=== PATIENT | female | born 1965 | race Caucasian/White ===

== ENCOUNTER 2016-11-19 20:51 | Inpatient (IN) | payer BC ==
[~2016-11-19] VITALS: Ht 165.1 cm; Wt 85.0 kg
[~2016-11-19 20:51] MED LIST: MOTRIN600 MG PO; TYLENOL WITH C1 EACH PO
[2016-11-19 21:20] LABS: HEMATOCRIT 39.9 % (36.0-46.0); MCHC 32.8 G/DL (30.0-36.0); MCV 88.5 FL (83-99); MEAN PLAT.VOLUME 9.9 uM^3 (9.5-12.4); PLATELET COUNT 300 K/uL (156-360); RBC DIS.WIDTH-CV 13.1 % (11.8-14.6); RBC DIS.WIDTH-SD 42.3 % (39-53); RED BLOOD COUNT 4.51 M/uL (3.80-5.20); WHITE BLOOD COUNT 11.3 K/uL (4.1-10.2)
[2016-11-19 21:37] LABS: CHLORIDE 106 mEq/L (99-109); POTASSIUM 4.1 mEq/L (3.7-5.4); SODIUM 141 mEq/L (136-147)
[2016-11-19 21:38] LABS: GLUCOSE 103 mg/dL (70-99)
[2016-11-19 21:40] LABS: ANION GAP 11 MEQ/L (2-14)
[2016-11-19 21:42] LABS: GFR ESTIMATE (CALCULATED) > 59 mL/min/
[2016-11-19 21:43] LABS: UREA NITROGEN (BUN) 16 mg/dL (9-23)
[2016-11-19 21:49] LABS: TROP-I INTERPRETATION NEGATIVE; TROPONIN-I < 0.01 ng/mL (0.0-0.30)
[2016-11-19 23:24] LABS: TOTAL BILIRUBIN 0.6 mg/dL (0.0-1.0)
[2016-11-19 23:25] LABS: ALKALINE PHOSPHATASE 89 IU/L (3-129)
[2016-11-19 23:28] LABS: DIRECT BILIRUBIN 0.3 mg/dL (0.0-0.3)
[2016-11-19 23:29] LABS: LIPASE 75 U/L (1.0-51.0)
[2016-11-20] MEDS ORDERED: ADVIL PM1 TABLET PO (00:12)
[2016-11-20 02:29] VITALS: BP 111/58
[2016-11-20 04:11] VITALS: BP 118/62
[2016-11-20 07:50] VITALS: BP 99/54
[2016-11-20 08:29] LABS: HEMATOCRIT 34.5 % (36.0-46.0); MCH 29.4 PG (29.0-34.0); MCHC 32.8 G/DL (30.0-36.0); MCV 89.6 FL (83-99); MEAN PLAT.VOLUME 10.5 uM^3 (9.5-12.4); PLATELET COUNT 225 K/uL (156-360); RBC DIS.WIDTH-CV 13.1 % (11.8-14.6); RBC DIS.WIDTH-SD 42.8 % (39-53); RED BLOOD COUNT 3.85 M/uL (3.80-5.20)
[2016-11-20 08:50] LABS: WHITE BLOOD COUNT 4.4 K/uL (4.1-10.2)
[2016-11-20 09:11] LABS: ALKALINE PHOSPHATASE 149 IU/L (3-129); ANION GAP 7 MEQ/L (2-14); CHLORIDE 108 MEQ/L (99-109); GFR ESTIMATE (CALCULATED) > 59 mL/min/; GLUCOSE 86 mg/dL (70-99); LIPASE 37 U/L (1.0-51.0); POTASSIUM 3.9 MEQ/L (3.7-5.4); SAMPLE HEMOLYSIS CHECK 0; SAMPLE ICTERIC CHECK 0; SAMPLE LIPEMIA CHECK 0; SODIUM 143 MEQ/L (136-147); TOTAL BILIRUBIN 1.5 MG/DL (0.0-1.0); UREA NITROGEN (BUN) 13 mg/dL (9-23)
[2016-11-20 10:55] VITALS: BP 90/50
[2016-11-20] MEDS ORDERED: HYDROCODON-ACE1 EAC7 PO (13:29)
[2016-11-20 15:43] VITALS: BP 108/60
[2016-11-20 23:21] VITALS: BP 105/59
[2016-11-21 03:32] VITALS: BP 128/72
[2016-11-21 08:23] VITALS: BP 145/65
[2016-11-21 08:41] LABS: HEMATOCRIT 38.3 % (36.0-46.0); MCH 28.9 PG (29.0-34.0); MCHC 31.9 G/DL (30.0-36.0); MCV 90.8 FL (83-99); MEAN PLAT.VOLUME 10.4 uM^3 (9.5-12.4); PLATELET COUNT 277 K/uL (156-360); RBC DIS.WIDTH-CV 13.3 % (11.8-14.6); RBC DIS.WIDTH-SD 44.2 % (39-53); RED BLOOD COUNT 4.22 M/uL (3.80-5.20); WHITE BLOOD COUNT 17.1 K/uL (4.1-10.2)
[2016-11-21 09:38] LABS: ANION GAP 8 MEQ/L (2-14); CHLORIDE 107 MEQ/L (99-109); GFR ESTIMATE (CALCULATED) > 59 mL/min/; POTASSIUM 4.1 MEQ/L (3.7-5.4); SAMPLE HEMOLYSIS CHECK 0; SAMPLE ICTERIC CHECK 0; SAMPLE LIPEMIA CHECK 0; SODIUM 143 MEQ/L (136-147); TOTAL BILIRUBIN 1.2 MG/DL (0.0-1.0); UREA NITROGEN (BUN) 11 mg/dL (9-23)
[2016-11-21 09:40] LABS: GLUCOSE 113 mg/dL (70-99)
[2016-11-21 09:41] LABS: ALKALINE PHOSPHATASE 195 IU/L (3-129)
[2016-11-21 10:00] VITALS: BP 122/70
== END 2016-11-21 11:55 | disposition home or self-care (01) | DRG 419 ==
LOC: EME 20:51 → EDOF 11-20 01:00 → 2EAST 11-20 02:17
PROVIDERS: Surgery
DX: K80.12 Calculus of gallbladder with acute and chronic cholecystitis without obstruction (principal); D72.829 Elevated white blood cell count, unspecified; I34.1 Nonrheumatic mitral (valve) prolapse; R07.89 Other chest pain; R79.89 Other specified abnormal findings of blood chemistry
CPT/HCPCS: 71020; 74300; 76705; 80048; 80053; 80076; 83690; 84484; 85027; 88304; 93005; 99281; 99285; J0690; J1100; J1170; J2250; J2270; J2405; J2710; J3010; J7030; J7120